=== PATIENT | female | born 1945 | race Caucasian/White ===

== ENCOUNTER 2020-02-23 03:03 | Emergency (ER) | payer MEDICARE, OTHER ==
[2020-02-23] MEDS ORDERED: Sodium Chloride 0.9% 10 ML Syringe FLUSH PRN (03:23)
[2020-02-23] MEDS ORDERED: Ondansetron 4 MG/2 ML SDV IV ONE (03:31)
[2020-02-23] MEDS ORDERED: HYDROmorphone 0.5 MG/0.5 ML Syringe IVPUSH ONE (03:32)
--- NOTE | 2020-02-23 03:35 | EDM.PDOC ---
ED HPI GENERAL MEDICAL PROBLEM - General Chief Complaint: Gastrointestinal Problem Stated Complaint: THROWING UP/SHARP PAIN BETWEEN SHOULDER BLADES Time Seen by Provider: 02/23/20 03:25 Source of Information: Reports: Patient History Limitations: Reports: No Limitations - History of Present Illness INITIAL COMMENTS - FREE TEXT/NARRATIVE: Patient comes emergency department today with complaints of epigastric pain. For the past couple of days the patient has had some generalized bloating throughout her abdomen. About 1030 tonight she suddenly had severe pain in the epigastric and right upper quadrant pain that goes into her back into her right shoulder. She has had nausea she has vomited 2 times prior to arrival. She had hamburger mac & cheese and beans for dinner. She has not had any pain like this in the past. The pain is a severe constant cramping type pain in the epigastric and right upper quadrant. She still has her gallbladder and her appendix. She denies any fever or chills. No covert exposure no COVID symptoms. No chest pain no shortness of breath or difficulty breathing. No cough or congestion. No loss of taste or smell. No diarrhea. No hematuria dysuria or urinary frequency. Epigastric Pain Score (Numeric/FACES): 9 - Related Data Allergies Allergy/AdvReac Type Severity Reaction Status Date / Time No Known Allergies Allergy Verified 02/23/20 03:18 Home Meds: Home Meds Aspirin [Aspirin EC] 81 mg PO DAILY 02/23/20 [History] Lisinopril/Hydrochlorothiazide [Lisinopril-Hctz 20-12.5 mg Tab] 1 tab PO DAILY 02/23/20 [History] Multivit-Min/Iron/Folic/Lutein [Centrum Silver Women Tablet] 1 tab PO DAILY 02/23/20 [History] atorvaSTATin [Lipitor] 40 mg PO DAILY 02/23/20 [History] ED ROS GENERAL - Review of Systems Review Of Systems: Comprehensive ROS is negative, except as noted in HPI. ED EXAM, GI/ABD - Physical Exam Exam: See Below Exam Limited By: No Limitations General Appearance: Alert, WD/WN, No Apparent Distress Respiratory/Chest: No Respiratory Distress, Lungs Clear, Normal Breath Sounds, Chest Non-Tender Cardiovascular: Normal Peripheral Pulses, Regular Rate, Rhythm GI/Abdominal Exam: Soft, No Organomegaly, No Distention, No Abnormal Bruit, No Mass, Pelvis Stable, Guarding (To the right upper quadrant in the epigastric region with a positive Bauer sign), Abnormal Bowel Sounds (Hypoactive bowel sounds) (Female) Exam: Deferred Rectal (Female) Exam: Deferred Back Exam: Normal Inspection, Full Range of Motion. No: CVA Tenderness (L), CVA Tenderness (R) Extremities: Normal Inspection, Normal Range of Motion Neurological: Alert, Oriented, Normal Cognition, No Motor/Sensory Deficits Psychiatric: Normal Affect, Normal Mood Skin Exam: Warm, Dry, Intact, Normal Color Lymphatic: No Adenopathy EKG INTERPRETATION EKG Date: 02/23/20 Time: 03:51 Rhythm: NSR Rate (Beats/Min): 70 [place]: Normal P-Wave: Present QRS: Normal ST-T: Normal QT: Normal Course - Vital Signs Last Recorded V/S: Last Vital Signs Temp 98.6 F 02/23/20 04:01 Pulse 73 02/23/20 04:01 Resp 16 02/23/20 04:01 BP 159/67 H 02/23/20 04:01 Pulse Ox 94 L 02/23/20 04:01 - Orders/Labs/Meds Orders: Active Orders 24 hr Category Date Time Status Peripheral IV Insertion Adult [OM.PC] Stat Oth 02/23/20 03:23 Ordered Labs: Laboratory Tests 02/23/20 02/23/20 02/23/20 Range/Units 03:35 03:35 06:48 WBC 7.5 (5.0-10.0) 10^3/uL RBC 4.40 (4.2-5.4) 10^6/uL Hgb 14.1 (12.0-16.0) g/dL Hct 40.6 (37.0-47.0) % MCV 92.3 (80-100) fL MCH 32.0 (27.0-34.0) pg MCHC 34.7 (33.0-35.0) g/dL Plt Count 214 (150-450) 10^3/uL Neut % (Auto) 79.6 H (42.2-75.2) % Lymph % (Auto) 13.3 L (20.5-50.1) % [place] % (Auto) 6.4 (2-8) % Eos % (Auto) 0.4 L (1.0-3.0) % Baso % (Auto) 0.3 (0.0-1.0) % Sodium 139 (136-145) mmol/L Potassium 3.4 L (3.5-5.1) mmol/L Chloride 103 (98-107) mmol/L Carbon Dioxide 30 (21-32) mmol/L Anion Gap 9.4 (7-13) mEq/L BUN 15 (7-18) mg/dL Creatinine 1.04 H (0.55-1.02) mg/dL Est Cr Clr Drug Dosing TNP Estimated GFR (MDRD) 52 BUN/Creatinine Ratio 14.4 (No establ ref range) Glucose 177 H (74-99) mg/dL Calcium 8.7 (8.5-10.1) mg/dL Total Bilirubin 0.4 (0.2-1.0) mg/dL AST 18 (15-37) U/L ALT 21 (14-59) U/L Alkaline Phosphatase 65 (46-116) U/L Troponin I < 0.017 (0.000-0.056) ng/mL C-Reactive Protein < 0.2 (0.0-0.9) mg/dL Total Protein 7.2 (6.4-8.2) g/dL Albumin 3.6 (3.4-5.0) g/dL Globulin 3.6 Albumin/Globulin Ratio 1.0 Lipase 288 (73-393) U/L Urine Color Yellow (YELLOW) Urine Appearance Clear (CLEAR) Urine pH 5.0 (5.0-9.0) Ur Specific [place] >= 1.030 (1.005-1.030) Urine Protein Negative (NEGATIVE) Urine Glucose (UA) Negative (NEGATIVE) Urine Ketones Negative (NEGATIVE) Urine Occult Blood Negative (NEGATIVE) Urine Nitrite Negative (NEGATIVE) Urine Bilirubin Negative (NEGATIVE) Urine Urobilinogen 0.2 (0.2-1.0) mg/dL Ur Leukocyte Esterase Negative (NEGATIVE) Meds: Medications Discontinued Medications Generic Name Dose Route Start Last Admin Trade Name Freq PRN Reason Stop Dose Admin Hydromorphone HCl 0.5 mg 02/23/20 03:32 02/23/20 03:49 Dilaudid IVPUSH 02/23/20 03:33 0.5 mg ONETIME ONE Administration Ondansetron HCl 4 mg 02/23/20 03:31 02/23/20 03:48 Zofran IV 02/23/20 03:32 4 mg ONETIME ONE Administration Sodium Chloride 10 ml 02/23/20 03:23 02/23/20 03:52 Saline Flush FLUSH 10 ml ASDIRECTED PRN Administration Keep Vein Open - Re-Assessments/Exams Free Text/Narrative Re-Assessment/Exam: 02/23/20 03:34 IV labs drawn. Zofran 4 mg IV push. Dilaudid 0.5 mg IV push. Urinalysis pending Following the above therapy the patient rested in the emergency department over the next couple of hours and really felt quite a bit better. Her nausea has resolved and her pain is completely resolved. Reexamination of her abdomen shows a soft nontender nondistended abdomen and her Bauer sign has resolved as well as her guarding. Her laboratory evaluation is rather unremarkable. Her urinalysis is negative. This is really the presentation of biliary colic which she is never had in the past but the presenting symptoms and exam is concerning for that. She is completely pain-free at this time and has been for the last couple of hours and rested very comfortably in the emergency department. We will send her home with some pain medication for the next couple of days and a gallbladder diet she needs to talk with her primary care provider about getting an ultrasound to evaluate her gallbladder. She is understanding of this plan of care her questions are answered. Discharge directions as below are explained to the patient she was comfortable with this plan and her questions were answered. Departure - Departure Time of Disposition: 07:05 Disposition: Home, Self-Care 01 Clinical Impression: Biliary colic - Discharge Information Instructions: Biliary Colic, Adult, Gallbladder Eating Plan Referrals: Ashlee Prado NP [Primary Care Provider] - Forms: ED Department Discharge Additional Instructions: Tylenol as needed for pain. Low fat diet, nothing rich spicy or fatty. See discharge instruction sheet on gallbladder eating plan. Contact your PCP and get an appointment for a recheck and Ultrasound next available. Lots of fluids and rest the next few days. If pain not controlled with above. [place] 1/2-1 tablet every 6 hrs with food as needed for pain. Caution sedation. RX given to the patient. Return to the ED if new or worsening symptoms. Follow up with PCP as described above. - My Orders Last 24 Hours: My Active Orders 02/23/20 03:23 Peripheral IV Insertion Adult [OM.PC] Stat - Assessment/Plan Last 24 Hours: My Active Orders 02/23/20 03:23 Peripheral IV Insertion Adult [OM.PC] Stat Assessment:: Biliary colic. Plan: Tylenol as needed for pain. Low fat diet, nothing rich spicy or fatty. See discharge instruction sheet on gallbladder eating plan. Contact your PCP and get an appointment for a recheck and Ultrasound next available. Lots of fluids and rest the next few days. If pain not controlled with above. [place] 1/2-1 tablet every 6 hrs with food as needed for pain. Caution sedation. RX given to the patient. Return to the ED if new or worsening symptoms. Follow up with PCP as described above.
[2020-02-23 04:02] LABS: ANION GAP 9.4 mEq/L (7-13); CHLORIDE,CL 103 mmol/L (98-107); SODIUM,NA 139 mmol/L (136-145)
== END 2020-02-23 07:30 | disposition home or self-care (01) ==
LOC: DL.ED 03:03
DX: K80.50 Calculus of bile duct without cholangitis or cholecystitis without obstruction (principal); Z79.82 Long term (current) use of aspirin; Z79.899 Other long term (current) drug therapy
CPT/HCPCS: 36415; 80053; 81003; 83690; 84484; 85025; 86140; 93005; 96374; 96375; 99284-25; J1170; J2405